=== PATIENT | male | born 1995 | race Caucasian/White ===

== ENCOUNTER 2019-06-28 12:31 | Inpatient (IN) | payer MEDICAID ==
[~2019-06-28] VITALS: Ht 162.6 cm; Wt 42.2 kg
[2019-06-28 12:44] VITALS: BP 124/64
[2019-06-28] MEDS ORDERED: IRON325 PO (12:52)
[2019-06-28] MEDS ORDERED: LANSOPRAZOLE30 MG PO (12:53)
[2019-06-28] MEDS ORDERED: LORAZEPAM 1 MG T1 MG PO (12:53)
[2019-06-28] MEDS ORDERED: NEURONTIN 300300 M1 PO (12:53)
[2019-06-28] MEDS ORDERED: [UNRECOGNIZED DRUG - OTHER] PO (12:54)
[2019-06-28] MEDS ORDERED: ASHWAGANDHA PO (12:55)
[2019-06-28] MEDS ORDERED: CBD OIL PO (12:56)
[2019-06-28 13:22] LABS: ABSOLUTE BASOPHILS 0.1 thou/uL (0.0-0.2); ABSOLUTE EOSINOPHILS 0.2 thou/uL (0.0-0.7); ABSOLUTE LYMPHOCYTES 2.5 thou/uL (0.8-5.3); ABSOLUTE MONOCYTES 0.8 thou/uL (0.0-1.2); BASOPHILS 0.6 %; HEMATOCRIT 44.6 % (42.0-52.0); LYMPHOCYTES 26.3 %; MCHC 33.6 g/dL (28.0-37.0); MCV 83.2 fL (80.0-100.0); MONOCYTES 8.2 %; MPV 6.8 fl. (7.2-11.1); NUCLEATED RBCS 0 /100WBC; PLATELET COUNT* 455 thou/uL (150-400); POLYS 62.9 %; RBC 5.36 mil/uL (4.50-6.00); WBC 9.5 thou/uL (4.0-11.0)
[2019-06-28 13:32] LABS: CALCIUM 9.5 mg/dL (8.5-10.1); CREATININE 0.8 mg/dL (0.6-1.3); POTASSIUM 3.8 mmol/L (3.5-5.1)
[2019-06-28 13:37] LABS: ALBUMIN 3.6 g/dL (3.4-5.0); TOTAL BILIRUBIN 0.2 mg/dL (<0.1-1.0)
--- NOTE | 2019-06-28 15:00 | NUR ---
KYLIE NOTIFIED UPON PT RETURN FROM CT.
[2019-06-28 17:22] LABS: URINE BILIRUBIN NEGATIVE (Negative); URINE BLOOD NEGATIVE (Negative); URINE CLARITY CLEAR; URINE COLOR YELLOW; URINE GLUCOSE-RANDOM NEGATIVE (Negative); URINE KETONES 1+ (Negative); URINE LEUKOCYTES-REFLEX NEGATIVE (Negative); URINE NITRITE-REFLEX NEGATIVE (Negative); URINE PROTEIN TRACE (Negative); URINE SPECIFIC GRAVITY 1.015 (1.005-1.030); URINE UROBILINOGEN 0.2 E.U./dl (0.2-1.0)
[2019-06-28 17:39] VITALS: BP 106/62
[2019-06-28 19:13] VITALS: BP 106/74
--- NOTE | 2019-06-28 19:42 | NUR ---
REPORT RECIEVED ON PT FROM ED NURSE. ASSUSSMED CARE OF PT APPROX 4720. ADMISSION ASSESSMENT COMPLETED. PTS MOTHER AT BEDSIDE. PTS MOTHER STATES FAMILY WILL BE AT BEDSIDE 19/06. PT NEEDS MET.
[2019-06-28 20:00] VITALS: BP 117/82
[2019-06-29 04:00] VITALS: BP 96/63
[2019-06-29 05:07] LABS: ABSOLUTE BASOPHILS 0.1 thou/uL (0.0-0.2); ABSOLUTE EOSINOPHILS 0.4 thou/uL (0.0-0.7); ABSOLUTE LYMPHOCYTES 2.9 thou/uL (0.8-5.3); ABSOLUTE MONOCYTES 0.7 thou/uL (0.0-1.2); ABSOLUTE NEUTROPHILS 3.7 thou/uL (1.6-8.1); BASOPHILS 0.8 %; EOSINOPHILS 5.1 %; HEMATOCRIT 37.6 % (42.0-52.0); MCH 27.8 pg (26.0-34.0); MCHC 33.4 g/dL (28.0-37.0); MCV 83.3 fL (80.0-100.0); MONOCYTES 9.3 %; MPV 6.9 fl. (7.2-11.1); NUCLEATED RBCS 0 /100WBC; PLATELET COUNT* 383 thou/uL (150-400); POLYS 47.8 %; RBC 4.51 mil/uL (4.50-6.00); RDW-CV 13.9 % (10.5-14.5); WBC 7.8 thou/uL (4.0-11.0)
[2019-06-29 05:13] LABS: CALCIUM 8.6 mg/dL (8.5-10.1); CREATININE 0.6 mg/dL (0.6-1.3); POTASSIUM 3.8 mmol/L (3.5-5.1)
[2019-06-29 05:31] LABS: HEMOGLOBIN 12.5 gm/dL (14.0-18.0)
--- NOTE | 2019-06-29 06:41 | NUR ---
PT NONVERBAL BASELINE. VSS ON RA. ASSESSMENT DOCUMENTED. MEDS GIVEN PER EMAR. IV ON LFA INFILTRATED. NEW IV STARTED ON RFA. NS @ 80ML/HR. MOM AT BEDSIDE THIS SHIFT. MOM REFUSED Q2 TURN THIS SHIFT. PT INCONTINENT. MOM INSISTS ON CHANGING PT HERSELF.
[2019-06-29 08:00] VITALS: BP 98/61
[2019-06-29 08:15] VITALS: BP 98/61
[2019-06-29 15:12] VITALS: BP 106/61
--- NOTE | 2019-06-29 18:42 | NUR ---
ASSUSSMED CARE OF PT APPROX 0730. REASSESSMENT COMPLETED CHARTED. MEDICATIONS GIVEN CHARTED. PT OFF UNIT THIS AM TO PROCEDURE. PT BACK TO UNIT UPON COMPLETION OF PROCEDURE. REPORT RECIEVED. PT NEEDS MET. PT FAMILY AT BEDSIDE DURING SHIFT. HOURLY ROUNDING COMPLETED.
--- NOTE | 2019-06-29 18:55 | NUR ---
I HAVE REVIEWED AND AGREE WITH THE CHARTING AND NOTE OF YOSI Davenport RN ON 06/29/19
[2019-06-29 19:30] VITALS: BP 111/73
[2019-06-30 04:00] VITALS: BP 112/61
[2019-06-30 04:44] LABS: ABSOLUTE EOSINOPHILS 0.4 thou/uL (0.0-0.7); ABSOLUTE LYMPHOCYTES 2.5 thou/uL (0.8-5.3); ABSOLUTE MONOCYTES 0.9 thou/uL (0.0-1.2); BASOPHILS 0.3 %; HEMATOCRIT 38.3 % (42.0-52.0); HEMOGLOBIN 12.7 gm/dL (14.0-18.0); LYMPHOCYTES 16.6 %; MCH 27.7 pg (26.0-34.0); MCHC 33.2 g/dL (28.0-37.0); MCV 83.4 fL (80.0-100.0); NUCLEATED RBCS 0 /100WBC; PLATELET COUNT* 392 thou/uL (150-400); POLYS 74.1 %; RBC 4.59 mil/uL (4.50-6.00); RDW-CV 13.4 % (10.5-14.5); WBC 14.9 thou/uL (4.0-11.0)
[2019-06-30 05:02] LABS: CALCIUM 8.8 mg/dL (8.5-10.1); CREATININE 0.7 mg/dL (0.6-1.3); POTASSIUM 3.8 mmol/L (3.5-5.1); TOTAL BILIRUBIN 0.2 mg/dL (<0.1-1.0); TOTAL PROTEIN 6.6 g/dL (6.4-8.2)
--- NOTE | 2019-06-30 05:35 | NUR ---
PT ALERT. NONVERBAL. VSS ON RA. ASSESSMENT DOCUMENTED. FAMILY VISITED PT BEGINNING OF SHIFT. MOM AT BEDSIDE THROUGH SHIFT. MEDS GIVEN WITH PUDDING. ATIVAN GIVEN THIS SHIFT. NO BM NOTED THIS SHIFT. NO VOMITTING THIS SHIFT. NO APPARENT PAIN. RFA IV WITH NS @ 80ML/HR. FALL PRECAUTION IN PLACE. HOURLY ROUNIDNGS MADE. WILL CONTINUE TO MONITOR.
[2019-06-30 06:37] LABS: ESR (SEDRATE) 10 mm/hr (0-15)
[2019-06-30 08:15] VITALS: BP 102/55
[2019-06-30 11:33] VITALS: BP 110/65
--- NOTE | 2019-06-30 13:57 | NUR ---
ASSUSSMED CARE OF PT APPROX 0730. ASSESSMENT COMPLETED CHARTED. MEDICATIONS GIVEN CHARTED. PT NEEDS BEING MET. HOURLY ROUNDING OCCURING. PTS FAMILY AT BEDSIDE DURING SHIFT.
[2019-06-30 14:34] VITALS: BP 110/65
[2019-06-30] MEDS ORDERED: FUSION PLUS CA1 EACH PO (14:51)
--- NOTE | 2019-06-30 18:05 | NUR ---
I HAVE REVIEWED AND AGREE WITH THE CHARTING OF YOSI Davenport RN ON 06/30/19 PT AND FAMILY GIVEN DISHCARGE INSTRUCTIONS AND LEFT WITH ALL BELONGINGS VIA PERSONAL WC.
== END 2019-06-30 15:48 | disposition home or self-care (01) | DRG 378 ==
LOC: M.ERS 12:31 → M.TBA-ER 15:43 → M.2W 17:38
PROVIDERS: Internal Medicine Gastroenterology; Nurse Practitioner Family; ADMIT Internal Medicine
PROC: 0DJ08ZZ Inspection of Upper Intestinal Tract, Via Natural or Artificial Opening Endoscopic (ICD-10-PCS; principal; 2019-06-29)
DX: K92.2 Gastrointestinal hemorrhage, unspecified (principal); Z68.1 Body mass index [BMI] 19.9 or less, adult; G80.3 Athetoid cerebral palsy; R62.7 Adult failure to thrive; K44.9 Diaphragmatic hernia without obstruction or gangrene; R63.4 Abnormal weight loss; M41.9 Scoliosis, unspecified; K22.70 Barrett's esophagus without dysplasia; Z88.8 Allergy status to other drugs, medicaments and biological substances; Z88.1 Allergy status to other antibiotic agents; Z91.041 Radiographic dye allergy status

== ENCOUNTER 2019-10-11 15:32 | Emergency (ER) | payer MEDICAID ==
[~2019-10-11] VITALS: Ht 160 cm; Wt 38.6 kg
[~2019-10-11 15:32] MED LIST: ASHWAGANDHA PO; CBD OIL PO; FUSION PLUS CA1 EACH PO; IRON325 PO; LANSOPRAZOLE30 MG PO; LORAZEPAM 1 MG T1 MG PO; NEURONTIN 300300 M1 PO; [UNRECOGNIZED DRUG - OTHER] PO
[2019-10-11 16:55] LABS: ABSOLUTE LYMPHOCYTES 1.4 thou/uL (0.8-5.3); ABSOLUTE MONOCYTES 0.8 thou/uL (0.0-1.2); ABSOLUTE NEUTROPHILS 5.3 thou/uL (1.6-8.1); BASOPHILS 0.1 %; EOSINOPHILS 0.4 %; HEMATOCRIT 48.5 % (42.0-52.0); HEMOGLOBIN 16.1 gm/dL (14.0-18.0); LYMPHOCYTES 19.1 %; MCH 26.9 pg (26.0-34.0); MCHC 33.3 g/dL (28.0-37.0); MONOCYTES 10.6 %; MPV 7.3 fl. (7.2-11.1); NUCLEATED RBCS 0 /100WBC; PLATELET COUNT* 297 thou/uL (150-400); POLYS 69.8 %; RBC 5.99 mil/uL (4.50-6.00); RDW-CV 15.5 % (10.5-14.5); WBC 7.6 thou/uL (4.0-11.0)
[2019-10-11 17:24] LABS: CREATININE 0.9 mg/dL (0.6-1.3); POTASSIUM 3.9 mmol/L (3.5-5.1)
[2019-10-11 17:28] LABS: ALBUMIN 3.3 g/dL (3.4-5.0); TOTAL BILIRUBIN 0.3 mg/dL (<0.1-1.0)
[2019-10-11 17:58] LABS: INFLUENZA A ANTIGEN Negative (Negative); INFLUENZA B ANTIGEN Negative (Negative)
[2019-10-11 19:10] LABS: URINE BILIRUBIN NEGATIVE (Negative); URINE BLOOD NEGATIVE (Negative); URINE CLARITY CLEAR; URINE COLOR YELLOW; URINE GLUCOSE-RANDOM NEGATIVE (Negative); URINE KETONES 2+ (Negative); URINE LEUKOCYTES-REFLEX NEGATIVE (Negative); URINE NITRITE-REFLEX NEGATIVE (Negative); URINE PROTEIN 1+ (Negative); URINE SPECIFIC GRAVITY >= 1.030 (1.005-1.030); URINE UROBILINOGEN 0.2 E.U./dl (0.2-1.0)
[2019-10-11] MEDS ORDERED: ZPAK PO (20:11)
[2019-10-11] MEDS ORDERED: PREDNISONE 10 M10 MG PO (20:11)
[2019-10-11 20:31] VITALS: BP 110/64
== END 2019-10-11 20:33 | disposition home or self-care (01) ==
LOC: M.ERS 15:32
PROVIDERS: Nurse Practitioner
DX: J21.9 Acute bronchiolitis, unspecified (principal); K59.00 Constipation, unspecified; R11.2 Nausea with vomiting, unspecified; M41.9 Scoliosis, unspecified; Z88.5 Allergy status to narcotic agent; Z88.1 Allergy status to other antibiotic agents; Z88.2 Allergy status to sulfonamides; Z91.041 Radiographic dye allergy status

== ENCOUNTER → 2019-11-06 | Outpatient (CLI) | payer MEDICAID ==
[~2019-11-06] MED LIST changes: +PREDNISONE 10 M10 MG PO; +ZPAK PO
[2019-11-06 11:43] LABS: ABSOLUTE EOSINOPHILS 0.3 thou/uL (0.0-0.7); ABSOLUTE LYMPHOCYTES 1.2 thou/uL (0.8-5.3); ABSOLUTE MONOCYTES 0.2 thou/uL (0.0-1.2); ABSOLUTE NEUTROPHILS 5.1 thou/uL (1.6-8.1); BASOPHILS 0.5 %; EOSINOPHILS 4.1 %; HEMATOCRIT 38.5 % (42.0-52.0); HEMOGLOBIN 12.7 gm/dL (14.0-18.0); LYMPHOCYTES 18.2 %; MCHC 32.9 g/dL (28.0-37.0); MCV 81.9 fL (80.0-100.0); MONOCYTES 3.3 %; MPV 7.1 fl. (7.2-11.1); NUCLEATED RBCS 0 /100WBC; PLATELET COUNT* 296 thou/uL (150-400); POLYS 73.9 %; RDW-CV 16.2 % (10.5-14.5); WBC 6.8 thou/uL (4.0-11.0)
[2019-11-06 11:55] LABS: ALBUMIN 2.9 g/dL (3.4-5.0); CALCIUM 8.6 mg/dL (8.5-10.1); CREATININE 0.6 mg/dL (0.6-1.3); POTASSIUM 3.7 mmol/L (3.5-5.1); TOTAL BILIRUBIN 0.2 mg/dL (<0.1-1.0)
[2019-11-06 12:35] LABS: ESR (SEDRATE) 5 mm/hr (0-15)
== END ==
LOC: M.LAB 11:21
PROVIDERS: Internal Medicine Gastroenterology
DX: R11.2 Nausea with vomiting, unspecified (principal)

== ENCOUNTER 2019-12-06 12:12 | Inpatient (IN) | payer MEDICAID ==
[~2019-12-06] VITALS: Ht 170.2 cm; Wt 43.1 kg
[2019-12-06] VITALS (12 sets, daily range): BP systolic 93–117; BP diastolic 51–86
--- NOTE | ~2019-12-06 | CON ---
[facility] [address] [place] [address] CONSULTATION Name: GILL RANDLE Room: [address] IN .R.#: [id number] Admission: 12/06/19 Attend Phys: Ashlee Ojeda Discharge: Date of : [birth year] Report #: [id number] THIS REPORT FOR: //name// CC: Lulu Sanchez DATE OF SERVICE: 12/07/2019 HISTORY OF PRESENT ILLNESS: This is a pleasant 23-year-old gentleman known to our service from his previous admissions. He has a past medical history significant for severe reflux esophagitis, large hiatal hernia and Cardenas's esophagus. The patient was brought into the hospital with complaints of nausea, vomiting and hematemesis. He has had about 5-6 episodes of emesis since his hospitalization. The ER noted hematemesis. No other symptoms such as constipation, fever, chills, weight loss, etc. The patient was placed on lansoprazole b.i.d., which he has been taking apparently. PAST MEDICAL HISTORY: The patient has a history significant for developmental delay from cerebral palsy, Cadrenas's esophagus, scoliosis. PAST SURGICAL HISTORY: Nonsignificant. SOCIAL HISTORY: The patient has no history of smoking, alcohol or recreational drug use. FAMILY HISTORY: No family history of esophageal or gastric cancer. REVIEW OF SYSTEMS: Unable to obtain because of the patient's mental status. PHYSICAL EXAMINATION: VITAL SIGNS: Blood pressure 84/49, pulse rate 85, temperature 36.4, pulse ox 95% on room air. GENERAL: The patient is awake and alert. HEENT: Pupils are equal, round, reactive to light and accommodation. Mucous membranes are moist. There is no congestion. LUNGS: Clear to auscultation bilaterally. CARDIOVASCULAR: Rate and rhythm regular, S1, S2 present. ABDOMEN: Soft. There is no distention, guarding or rigidity. EXTREMITIES: Warm, well perfused. There is no edema. LABORATORY DATA: Hemoglobin on presentation 16.7, hematocrit 50.9, hemoglobin today morning 12.3, hematocrit 37.3. INR 1.1. Sodium 148, potassium 3.4, chloride 111, bicarbonate 33, BUN 15, creatinine 0.8. IMAGING: CT abdomen and pelvis, this demonstrates [place] [address] CONSULTATION Name: RAZIAGILL Room: [address] IN [facility]#: [id number] Admission: 12/06/19 Attend Phys: Ashlee subramanian Placedo Discharge: Date of : [birth year] Report #: [id number] circumferential mural thickening of the esophagus, likely inflammatory. No evidence of bowel obstruction, ascites or other acute process. ASSESSMENT AND PLAN: Pleasant 23-year-old gentleman with history of cerebral palsy, reflux esophagitis, large hiatal hernia and Cardenas's esophagus, presenting with hematemesis. The patient has been placed on Protonix drip. The plan is to proceed with upper GI endoscopy and make further recommendations based on results of that. By: [id number] L Maldonado MD /nt
[2019-12-06 13:15] LABS: ABSOLUTE BASOPHILS 0.1 thou/uL (0.0-0.2); ABSOLUTE LYMPHOCYTES 1.7 thou/uL (0.8-5.3); ABSOLUTE MONOCYTES 0.7 thou/uL (0.0-1.2); ABSOLUTE NEUTROPHILS 13.2 thou/uL (1.6-8.1); BASOPHILS 0.3 %; HEMATOCRIT 50.9 % (42.0-52.0); HEMOGLOBIN 16.7 gm/dL (14.0-18.0); LYMPHOCYTES 10.5 %; MCH 27.3 pg (26.0-34.0); MCHC 32.8 g/dL (28.0-37.0); MONOCYTES 4.8 %; MPV 7.6 fl. (7.2-11.1); NUCLEATED RBCS 0 /100WBC; PLATELET COUNT* 432 thou/uL (150-400); POLYS 84.4 %; RBC 6.12 mil/uL (4.50-6.00); RDW-CV 15.8 % (10.5-14.5); WBC 15.7 thou/uL (4.0-11.0)
[2019-12-06 13:27] LABS: CALCIUM 9.4 mg/dL (8.5-10.1); CREATININE 1.1 mg/dL (0.6-1.3); POTASSIUM 4.1 mmol/L (3.5-5.1)
[2019-12-06 13:29] LABS: APTT 26.6 Seconds (25.0-31.3); INR 1.1; PROTIME 10.9 Seconds (9.20-11.50)
[2019-12-06 13:31] LABS: ALBUMIN 4.4 g/dL (3.4-5.0); TOTAL BILIRUBIN 0.4 mg/dL (<0.1-1.0); TOTAL PROTEIN 8.9 g/dL (6.4-8.2)
--- NOTE | 2019-12-06 16:21 | EKG ---
[place] [address] ELECTROCARDIOGRAM REPORT Name: GILL RANDLE Room: [place] [address] ADM IN M.R.#: [id number] Admission: 12/06/19 Attend Phys: Ashlee Ojeda Discharge: Date of : [birth year] Report #: [id number] THIS REPORT FOR: //name// [facility] ED Test Date: 2019-12-06 Test Time: 15:23:11 Pat Name: GILL RANDLE Department: Room: [place] [address] Gender: M Cutter Operator: CURLY : 1995 Requested By: Charles Trejo Order Number: [id number] MD: Gennaro Prado Measurements Intervals [place] Rate: 114 P: 63 ND: 111 QRS: 87 QRSD: 70 T: -51 QT: 283 QTc: 390 Interpretive Statements Sinus tachycardia with short pr interval Borderline repolarization abnormality No previous ECG available for comparison Electronically Signed On 12-06-2019 16:21:01 SENIOR RADIATION THERAPIST by Gennaro Prado [email or web address] <ELECTRONICALLY SIGNED> By: Gennaro Prado MD, [facility] 12/06/19 1621 1523 1523 Gennaro Prado MD, FAC /EPI
--- NOTE | 2019-12-06 20:03 | NUR ---
PT RECEIVED FROM ER AT 1700, LETHARGIC AND SLEEPY, NON VERBAL. UWBGER-ND-ARM AT THE BEDSIDE, STATES SHE HAS BEED TAKING CARE OF HIM FOR A WHILE. VSS. NO ACTIVE GI BLEED TILL NOW AND NO VOMITING. PROTONIX CONTD AT 8 MG/HR AND NS AT 100 MLS/HR. ADMISSION PROCESS COMPLETED.
[2019-12-06 20:59] LABS: HEMATOCRIT 42.3 % (42.0-52.0)
[2019-12-06 21:01] LABS: HEMOGLOBIN 13.7 gm/dL (14.0-18.0)
[2019-12-07] VITALS (34 sets, daily range): BP systolic 81–106; BP diastolic 43–75
[2019-12-07 04:23] LABS: HEMATOCRIT 37.3 % (42.0-52.0); HEMOGLOBIN 12.3 gm/dL (14.0-18.0)
--- NOTE | 2019-12-07 07:08 | NUR ---
ASSESSMENTS CHARTED. PATIENT SLEPT IN BED FOR MOST OF THE NIGHT. SISTER IN LAW STAYED IN ROOM OVERNIGHT WITH PATIENT. HGB STAYED STABLE ENOUGH NOT TO CALL IN GI FOR EMERGENT EGD. PLAN IS FOR PATIENT TO BE SCOPED TODAY. NO SIGNIFICANT EVENTS THIS SHIFT. WCTM.
[2019-12-07 11:32] LABS: CALCIUM 8.2 mg/dL (8.5-10.1); CREATININE 0.8 mg/dL (0.6-1.3); POTASSIUM 3.4 mmol/L (3.5-5.1)
--- NOTE | 2019-12-07 19:07 | NUR ---
EGD DONE TODAY. TOLERATING SIPS. INCONTINENT, GOOD URINE OUTPUT. VSS. Q2 TURNS FOR SKIN INTEGRITY. [id number] HELPFUL WITH PT CARE.
[2019-12-08] VITALS (13 sets, daily range): BP systolic 87–105; BP diastolic 44–62
[2019-12-08 04:34] LABS: HEMATOCRIT 35.2 % (42.0-52.0); HEMOGLOBIN 11.8 gm/dL (14.0-18.0); MCH 28.3 pg (26.0-34.0); MCHC 33.6 g/dL (28.0-37.0); MCV 84.1 fL (80.0-100.0); MPV 7.4 fl. (7.2-11.1); RBC 4.18 mil/uL (4.50-6.00); RDW-CV 15.6 % (10.5-14.5); WBC 7.1 thou/uL (4.0-11.0)
[2019-12-08 04:52] LABS: CALCIUM 8.2 mg/dL (8.5-10.1); CREATININE 0.7 mg/dL (0.6-1.3)
[2019-12-08 09:02] LABS: MAGNESIUM 1.7 mg/dL (1.8-2.4); PHOSPHORUS* 2.8 mg/dL (2.5-4.9)
[2019-12-08] MEDS ORDERED: PROTONIX40 M2 PO (15:10)
[2019-12-08] MEDS ORDERED: CARAFATE1 GM/10 ML PO (15:11)
--- NOTE | 2019-12-08 15:22 | NUR ---
ALL INFORMATION GIVEN TO PATIENT CAREGIVER AT THIS TIME. SCRIPTS CALLED INTO [facility] IN [place] PER DR LAURENCE ERICKSON. ALL QUESTIONS ANSWERED. ALL BELONGINGS PACKED AND READY TO GO.
== END 2019-12-08 15:59 | disposition home or self-care (01) | DRG 377 ==
LOC: M.ERS 12:12 → M.TBA-ER 15:03 → M.ICU 17:02
PROVIDERS: Physician Assistant; ADMIT Family Medicine
PROC: 0DJ08ZZ Inspection of Upper Intestinal Tract, Via Natural or Artificial Opening Endoscopic (ICD-10-PCS; principal; 2019-12-07)
DX: K92.2 Gastrointestinal hemorrhage, unspecified (principal); R65.11 Systemic inflammatory response syndrome (SIRS) of non-infectious origin with acute organ dysfunction; D62 Acute posthemorrhagic anemia; E87.0 Hyperosmolality and hypernatremia; K92.0 Hematemesis; E86.0 Dehydration; D47.3 Essential (hemorrhagic) thrombocythemia; K44.9 Diaphragmatic hernia without obstruction or gangrene; K22.70 Barrett's esophagus without dysplasia; G80.9 Cerebral palsy, unspecified; Z88.2 Allergy status to sulfonamides; Z88.8 Allergy status to other drugs, medicaments and biological substances; Z88.6 Allergy status to analgesic agent; Z91.041 Radiographic dye allergy status

== ENCOUNTER → 2020-07-24 | Outpatient (CLI) | payer MEDICAID ==
[~2020-07-24] MED LIST changes: +CARAFATE1 GM/10 ML PO; +PROTONIX40 M2 PO
[2020-07-24 16:07] LABS: CALCIUM 8.3 mg/dL (8.5-10.1); CREATININE 0.8 mg/dL (0.6-1.3); POTASSIUM 3.7 mmol/L (3.5-5.1)
== END ==
LOC: M.LAB 15:32
PROVIDERS: ATTEND Internal Medicine Gastroenterology
DX: K21.0 Gastro-esophageal reflux disease with esophagitis (principal); K22.70 Barrett's esophagus without dysplasia; G80.9 Cerebral palsy, unspecified; E23.0 Hypopituitarism; Z20.828 Contact with and (suspected) exposure to other viral communicable diseases